=== PATIENT | female | born 1970 | race African-American/Black ===

== ENCOUNTER 2019-12-10 11:22 | Emergency (ER) | payer OTHER ==
[~2019-12-10] VITALS: Ht 162.6 cm; Wt 76.2 kg
--- NOTE | 2019-12-10 11:34 | NUR ---
ED Nurse Note: Pt walked in from home c/o right knee pain since yesterday. Pt denies injury/fall. Pt has history of right knee surgery, but pt could not remember the reason for the surgery. Respirations even and unlabored on room air. Vitals stable as documented.
[2019-12-10 11:35] VITALS: BP 141/88
--- NOTE | 2019-12-10 11:55 | NUR ---
ED Nurse Note: pt wanted to take the knee immobilizer home instead of applying it now. ERT gave her the knee immobilizer and instructed her on how to apply it.
[2019-12-10] MEDS ORDERED: IBUPROFEN600 MG ORAL (11:57)
[2019-12-10 12:00] VITALS: BP 138/89
--- NOTE | 2019-12-10 12:00 | NUR ---
ER DISCHARGE NOTE: Patient is cleared to be discharged per ERMD, pt is aox4, on room air, with stable vital signs as documented. pt was given dc and prescription instructions and was able to verbalize understanding, pt id band removed. pt is able to ambulate with steady gait. pt took all belongings.
--- NOTE | 2019-12-10 13:56 | Emergency Room Report ---
History of Present Illness General Chief Complaint: Pain Source: Patient Present Illness HPI 49-year-old female presents ED complaining of right knee pain. Patient states she has had right knee pain for years. Was told that she may need surgery on her right knee. Already had arthroscopy done on her left knee. States that after workout yesterday at the gym her knee was swollen. Pain is dull, 5 out of 10, nonradiating. No other aggravating relieving factors. Denies any other associated symptoms Allergies: Coded Allergies: No Known Allergies (Unverified , 12/10/19) Patient History Past Medical History: none Past Surgical History: none Pertinent Family History: none Social History: Denies: smoking, alcohol use, drug use Last Menstrual Period: 12/04/19 Now: No Immunizations: UTD Reviewed Nursing Documentation: PMH: Agreed; PSxH: Agreed Nursing Documentation-PMH Past Medical History: No Stated History Review of Systems All Other Systems: negative except mentioned in HPI Physical Exam Vital Signs Date Time Temp Pulse Resp B/P (MAP) Pulse Ox O2 Delivery O2 Flow Rate FiO2 12/10/19 11:27 98.6 106 16 141/88 (105) 98 Room Air Sp02 EP Interpretation: reviewed, normal General Appearance: no apparent distress, alert, GCS 15, non-toxic Head: normocephalic Eyes: bilateral eye normal inspection, bilateral eye PERRL ENT: normal ENT inspection Neck: normal inspection Respiratory: normal inspection Cardiovascular #1: normal inspection Gastrointestinal: normal inspection Rectal: deferred Genitourinary: no CVA tenderness Musculoskeletal: back normal, normal range of motion, gait/station normal, tender - R knee Neurologic: alert, motor strength/tone normal, oriented x3, sensory intact, responsive, speech normal Psychiatric: normal inspection Skin: no rash Lymphatic: normal inspection Procedures Splinting Splinting : Consent: Verbal Pre-Made Type: knee immobilizer Pre-Proc Neuro Vasc Exam: normal Post-Proc Neuro Vasc Exam: normal Patient Tolerated: Well Complications: None Medical Decision Making Diagnostic Impression: Primary Impression: Knee sprain Qualified Codes: S83.91XA - Sprain of unspecified site of right knee, initial encounter ER Course Hospital Course 49 yo F presents to ED c/o R knee pain Differential diagnoses include: Fracture, dislocation, sprain, contusion, bursitis Clinical course Patient placed on stretcher. After initial history, physical exam reveals an middle-aged female in no acute distress. There is tenderness to the medial aspect of the right knee. There is some pain with medial lateral stress. Full range of motion noted. I discussed findings with patient. Concern for ligamentous injury. Patient is requesting MRI. I explained that there is no emergent indication for MRI and this can be done in outpatient setting through orthopedics. We can offer x-ray here but patient declines. Will place in knee immobilizer. Safe for discharge for close outpatient follow-up. States he has an orthopedic doctor but I will provide Ortho referrals Diagnosis - knee sprain stable and discharged to home. Followup with PMD/ortho. Return to ED if symptoms recur or worsen Last Vital Signs Date Time Temp Pulse Resp B/P (MAP) Pulse Ox O2 Delivery O2 Flow Rate FiO2 12/10/19 12:00 98.4 80 16 138/89 98 Room Air Status: improved Disposition: HOME, SELF-CARE Condition: Stable Scripts Ibuprofen* (MOTRIN*) 600 Mg Tablet 600 MG ORAL Q8H PRN for For Pain, #30 TAB 0 Refills Prov: Andre Gomez MD 12/10/19 Referrals: [facility],REFERRING (PCP) [facility] Open 24 hour /7 days a week by Appointment Only [address] [facility], [place] [address] Patient Instructions: Knee Sprain, [id number] Andre Gomez MD Dec 10, 2019 13:56
== END 2019-12-10 12:00 | disposition home or self-care (01) ==
LOC: EMR 11:40
DX: S83.91XA Sprain of unspecified site of right knee, initial encounter (principal); X58.XXXA Exposure to other specified factors, initial encounter; Y92.9 Unspecified place or not applicable
CPT/HCPCS: 29505; Z7502; 99283

== ENCOUNTER 2020-08-18 22:44 | Emergency (ER) | payer OTHER ==
[~2020-08-18] VITALS: Ht 162.6 cm; Wt 72.6 kg
[~2020-08-18 22:44] MED LIST: IBUPROFEN600 MG ORAL
[2020-08-18 23:00] VITALS: BP 162/103
--- NOTE | 2020-08-18 23:00 | NUR ---
ED Nurse Note: Patient walked into ED for c/o possible bug bite which caused an abscess to R forearm and also feeling fatigued. She states she has hx of anemia and is worred about her iron/hgb level. Patient is aaox4, breathing is normal and unlabored. She is ambulatory with steady gait. Abscess to R forearm is red and swollen.
[2020-08-18] MEDS ORDERED: Lidocaine 1% Plain 30 ml INJ ONE (23:30)
--- NOTE | 2020-08-18 23:45 | NUR ---
ED Nurse Note: ERMD bedside for I&D of abscess on R forearm.
[2020-08-18 23:58] LABS: BASOPHILS % (AUTO) 1.8 % (0.0-2.0); HEMATOCRIT 34.5 % (37.0-47.0); HEMOGLOBIN 11.2 G/DL (12.0-16.0); LYMPHOCYTES % (AUTO) 40.4 % (20.0-45.0); MEAN CORPUSCULAR VOLUME 86 FL (80-99); MONOCYTES % (AUTO) 10.3 % (1.0-10.0); NEUTROPHILS % (AUTO) 46.5 % (45.0-75.0); PLATELET COUNT 364 K/UL (150-450); RED BLOOD COUNT 4.02 M/UL (4.20-5.40); RED CELL DISTRIBUTION WIDTH 16.8 % (11.6-14.8); WHITE BLOOD COUNT 6.3 K/UL (4.8-10.8)
[2020-08-19] MEDS ORDERED: BACTRIM DS TAB1 EAC1 ORAL (00:02)
[2020-08-19] MEDS ORDERED: FERROUS SULFAT325 MG ORAL (00:02)
--- NOTE | 2020-08-19 00:02 | Emergency Room Report ---
History of Present Illness General Chief Complaint: Skin Rash/Abscess Source: Patient Present Illness HPI This is a 50-year-old female with a history of sickle cell trait and anemia. She presents with chief complaint of feeling weak and thinking her iron levels are low. Is been ongoing for about a month. She is not taking iron supplements anymore. No nausea no vomiting. No fever or chills. No longer having menstruation. Second complaint is a bite to the right forearm. She has a bump there for a week and the last 2 days is more swollen. Is also tender. No redness or drainage. No fever chills. Did not see anything biting her. Allergies: Coded Allergies: No Known Allergies (Unverified , 12/10/19) COVID-19 Screening Contact w/high risk pt: No Experienced COVID-19 symptoms?: No COVID-19 Testing performed [employer] DEVELOPER: No Patient History Past Medical History: see triage record, old chart reviewed Past Surgical History: none Pertinent Family History: none Social History: Denies: smoking Last Menstrual Period: 07/02/20 Now: No Immunizations: other Reviewed Nursing Documentation: PMH: Agreed; PSxH: Agreed Nursing Documentation-PMH Past Medical History: No Stated History Review of Systems Constitutional: Reports: malaise, weakness Eye: Denies: eye pain, blurred vision ENT: Denies: ear pain, nose congestion, throat swelling Respiratory: Denies: cough, shortness of breath Cardiovascular: Denies: chest pain, palpitations Gastrointestinal: Denies: abdominal pain, diarrhea, nausea, vomiting Musculoskeletal: Denies: back pain, joint pain Skin: Denies: rash Neurological: Denies: headache, numbness Endocrine: Denies: increased thirst, increased urine Hematologic/Lymphatic: Denies: easy bruising All Other Systems: negative except mentioned in HPI Physical Exam Vital Signs Date Time Temp Pulse Resp B/P (MAP) Pulse Ox O2 Delivery O2 Flow Rate FiO2 08/18/20 22:53 97.3 95 20 162/103 (122) 97 Room Air Vitals with high blood pressure Sp02 EP Interpretation: reviewed, normal General Appearance: well appearing, no apparent distress, alert Head: normocephalic, atraumatic Eyes: bilateral eye PERRL, bilateral eye EOMI ENT: hearing grossly normal, normal pharynx Neck: full range of motion, supple, no meningismus Respiratory: chest non-tender, lungs clear, normal breath sounds Cardiovascular #1: regular rate, rhythm, no murmur Gastrointestinal: normal bowel sounds, non tender, no mass, no organomegaly, no bruit, non-distended Musculoskeletal: back normal, normal range of motion, gait/station normal, other - Right forearm: On the mid forearm on the volar aspect, there is an indur ated area of 1 cm. Tender to palpation. Mild surrounding erythema. No crepitance. Psychiatric: mood/affect normal Procedures Incision and Drainage Incision and Drainage : Consent: Verbal Site: Right forearm Blade Size: 11 I & D Procedure: betadine prep Wound Location: upper extremity Patient Tolerated: Well Complications: None Progress Area cleaned with Betadine. Local anesthetic 1% lidocaine. I made a 1 cm i ncision. There is a small amount of pus expressed. Patient tolerated procedure without any problem. Medical Decision Making Diagnostic Impression: Primary Impression: Abscess Additional Impression: Anemia Qualified Codes: D64.9 - Anemia, unspecified ER Course She presents with a small abscess to the right forearm. This may be infected sebaceous cyst or MRSA. She is status post I&D. Will discharge home. Her anemia is very mild. We will put her on iron. Last Vital Signs Date Time Temp Pulse Resp B/P (MAP) Pulse Ox O2 Delivery O2 Flow Rate FiO2 08/18/20 23:00 97.3 95 20 162/103 97 Room Air Status: improved Disposition: HOME, SELF-CARE Condition: Stable Scripts Trimethoprim/Sulfamethoxazole 160/800* (BACTRIM DS TABLET*) 1 Each Tablet 1 TAB ORAL Q12H, #14 TAB 0 Refills Prov: Gallo Mendez MD 08/19/20 Ferrous Sulfate* (FERROUS SULFATE*) 325 Mg Tablet 325 MG ORAL THREE TIMES A DAY for SUPPLEMENT, #90 TAB 0 Refills Prov: Gallo Mendez MD 08/19/20 Referrals: NON PHYSICIAN (PCP) Patient Instructions: Abscess Additional Instructions: Follow-up with your doctor in 2 to 3 days for recheck. Return if symptoms worsen. Gallo Mendez MD Aug 19, 2020 00:02
[2020-08-19 00:15] VITALS: BP 140/99
--- NOTE | 2020-08-19 00:15 | NUR ---
ER DISCHARGE NOTE: Patient is cleared to be discharged per ERMD, pt is aox4, on room air, with stable vital signs. pt was given dc and prescription instructions, pt was able to verbalize understanding, pt id band removed. pt is able to ambulate with steady gait. pt took all belongings.
== END 2020-08-19 00:15 | disposition home or self-care (01) ==
LOC: EMR 23:30
DX: D64.9 Anemia, unspecified (principal); L02.413 Cutaneous abscess of right upper limb
CPT/HCPCS: 10060; 36415; 85025; J2001; Z7502; 99283